=== PATIENT | female | born 1975 | race Hispanic/Latino ===

== ENCOUNTER 2017-05-26 00:04 | Emergency (ER) | payer OTHER ==
[2017-05-26] MEDS ORDERED: CLOPIDOGREL BISULFATE 300 MG TAB ONE (01:03)
[2017-05-26] MEDS ORDERED: NITROGLYCERIN 1GM/1 INCH PACKET TD ONE (01:04)
[2017-05-26 01:29] LABS: CREATINE KINASE MB < 0.5 ng/mL (0.5-3.6); CREATINE KINASE, TOTAL 111 U/L (21-232)
== END 2017-05-26 05:59 | disposition home or self-care (01) ==
LOC: EDH 00:04
DX: R06.00 Dyspnea, unspecified (principal); J45.909 Unspecified asthma, uncomplicated
CPT/HCPCS: 36415; 71046; 82550; 82553; 84484; 87804; 93005

== ENCOUNTER 2017-07-24 07:34 | Emergency (ER) | payer OTHER ==
[2017-07-24] MEDS ORDERED: ONDANSETRON ODT 4 MG TAB ONE (07:56)
[2017-07-24] MEDS ORDERED: DICYCLOMINE HCL 10 MG/ML 2ML AMP IM ONE (07:56)
[2017-07-24 10:04] LABS: OCCULT BLOOD STOOL SINGLE ONLY NEGATIVE (NEGATIVE)
== END 2017-07-24 08:38 | disposition home or self-care (01) ==
LOC: EDH 07:34
DX: K52.9 Noninfective gastroenteritis and colitis, unspecified (principal); R10.9 Unspecified abdominal pain; J45.909 Unspecified asthma, uncomplicated
CPT/HCPCS: 82270; 87324; 96372; 99284; J0500

== ENCOUNTER 2019-05-03 10:33 | Emergency (ER) | payer BC, OTHER ==
[2019-05-03] MEDS ORDERED: BENZONATATE 100 MG CAPSULE PO ONE (11:29)
[2019-05-03] MEDS ORDERED: GUAIFENESIN SUGAR-FREE 100 MG/5 ML UDCUP ONE (11:29)
[2019-05-03] MEDS ORDERED: ACETAMINOPHEN EXTRA STRENGTH 500 MG TABLET ONE (11:30)
== END 2019-05-03 12:38 | disposition home or self-care (01) ==
LOC: EDH 10:33
DX: J06.9 Acute upper respiratory infection, unspecified (principal); J45.909 Unspecified asthma, uncomplicated
CPT/HCPCS: 71046; 87804